=== PATIENT | female | born 1955 | race Two or more races ===

== ENCOUNTER 2024-04-02 17:49 | Inpatient (IN) | payer OTHER ==
[~2024-04-02] VITALS: Ht 160 cm; Wt 77.2 kg
--- NOTE | 2024-04-02 18:10 | ED.PDOC ---
Altered Mental Status HPI Comments 68-year-old female presents with a chief complaint of ALOC, anxiety, and SOB. Per EMS, patient is A/o x2 at this time, but is presenting very anxious. Per family, patient began acting this way starting today. Family denies any falls or head trauma prior to onset. Family discloses that patient has been undergoing treatment for Schizophrenia for the past 2 years. When asking patient what is wrong at this time, she states that she "feels like hell' and 'I cannot breathe". Patient was placed on nasal cannula by EMS. Chief Complaint: ALOC Time Seen by MD: 18:00 Reviewed Notes: Medications, Allergies Allergies: Coded Allergies: Penicillins (Verified Allergy, Unknown, 04/02/24) Information Source: Patient, Emergency Med Personnel Mode of Arrival: EMS Severity: Moderate Timing: Hours Duration: Since onset Prehospital treatment: Oxygen Quality: Change in Behavior, Confusion Past Medical History PAST MEDICAL HISTORY: High Lipids, HTN, Schizophrenia Surgical History: Pt Confused RECORDING ARTIST History: Denies all RECORDING ARTIST Hx Family History Family History: Reviewed,noncontributory to illness Social History Smoker: Non-Smoker Alcohol: Denies ETOH Use Drugs: Denies Drug Use Lives In: Home Constitutional: denies: chills, diaphoresis, fatigue, fever, malaise, sweats, weakness, others EENTM: denies: blurred vision, double vision, ear bleeding, ear discharge, ear drainage, ear pain, ear ringing, eye pain, eye redness, hearing loss, mouth pain, mouth swelling, nasal discharge, nose bleeding, nose congestion, nose pain, photophobia, tearing, throat pain, throat swelling, voice changes, others Respiratory: reports: shortness of breath; denies: cough, hemoptysis, orthopnea, SOB at rest, SOB with excertion, stridor, wheezing, others Cardiovascular: denies: chest pain, dizzy spells, diaphoresis, Dyspnea on exertion, edema, irregular heart beat, left arm pain, lightheadedness, palpitations, PND, syncope, others Gastrointestinal: denies: abdomen distended, abdominal pain, blood streaked bowels, constipated, diarrhea, dysphagia, difficulty swallowing, hematemesis, melena, nausea, poor appetite, poor fluid intake, rectal bleeding, rectal pain, vomiting, others Genitourinary: denies: abnormal vagina bleeding, burning, dyspareunia, dysuria, flank pain, frequency, hematuria, incontinence, pain, , vagina discharge, urgency, others Neurological: denies: dizziness, fainting, headache, left sided numbness, left sided weakness, numbness, paresthesia, pre-existing deficit, right sided numbnes s, right sided weakness, seizure, speech problems, tingling, tremors, weakness, others Musculoskeletal: denies: back pain, gout, joint pain, joint swelling, muscle pain, muscle stiffness, neck pain, others Integumetry: denies: bruises, change in color, change in hair/nails, dryness, laceration, lesions, lumps, rash, wounds, others Allergic/Immunocompromised: denies: Difficulty Healing, Frequent Infections, Hives, Itching, others Hematologic/Lymphatic: denies: anemia, blood clots, easy bleeding, easy bruising, swollen glands, others Endocrine: denies: excessive hunger, excessive sweating, excessive thirst, excessive urination, flushing, intolerance to cold, intolerance to heat, unexplained weight gain, unexplained weight loss, others Psychiatric: reports: anxiety; denies: bipolar disorder, depression, hopeless, panic disorder, schizophrenia, sleepless, suicidal, others Unable to Obtain due to: Altered Mental Status All Other Systems: Reviewed and Negative Physical Exam General Appearance: No Apparent Distress, Normal HEENT: Normal ENT Inspection, Pharynx Normal, TMs Normal Neck: Full Range of Motion, Non-Tender, Normal, Normal Inspection Respiratory: Chest Non-Tender, Lungs Clear, No Accessory Muscle Use, No Respiratory Distress, Normal Breath Sounds Cardiovascular: No Edema, No JVD, No Murmur, No Gallop, Normal Peripheral P ulses, Regular Rate/Rhythm Breast Exam: Deferred Gastrointestinal: No Organomegaly, Non Tender, No Pulsatile Mass, Normal Bowel Sounds, Soft Genitalia: Deferred Pelvic: Deferred Rectal: Deferred Extremities: No calf tenderness, Normal capillary refill, Normal inspection, Normal range of motion, Non-tender, No pedal edema Musculoskeletal : Apperance: Normal Neurologic: Alert, 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 Was a procedure done?: No Differential Diagnosis (ALOC) Differential Diagnosis: Hypoglycemia, DKA, Encephalopathy, Sepsis, Hypoxemia, CVA X-Ray, Labs, Meds, VS Vital Signs Date Time Temp Pulse Resp B/P (MAP) Pulse Ox O2 Delivery O2 Flow Rate FiO2 04/02/24 19:22 83 24 140/72 (94) 99 04/02/24 18:06 97.9 92 40 174/95 (121) 100 Lab Test 04/02/24 22:19 04/02/24 20:52 04/02/24 19:30 Range/Units Sodium Level 134 L 136-145 mmol/L Potassium Level 3.7 3.5-5.1 mmol/L Chloride Level 99 98-107 mmol/L Carbon Dioxide Level 22 20-31 mmol/L Anion Gap 13 5-15 Blood Urea Nitrogen 14 9-23 mg/dL Creatinine 1.29 H 0.550-1.02 mg/dL Glomerular Filtration Rate Calc 45 >90 mL/min BUN/Creatinine Ratio 10.9 10.0-20.0 Serum Glucose 94 74-106 mg/dL Calcium Level 10.5 H 8.7-10.4 mg/dL Troponin I High Sensitivity 10 9 </=34 ng/L White Blood Count 11.4 H 4.4-10.8 10^3/uL Red Blood Count 3.60 L 4.0-5.20 10^6/uL Hemoglobin 12.0 L 12.2-16.2 g/dL Hematocrit 34.4 L 36.0-46.0 % Mean Corpuscular Volume 95.6 80.0-100.0 fL Mean Corpuscular Hemoglobin 33.3 H 28.0-32.0 pg Mean Corpuscular Hemoglobin Concent 34.8 32.0-36.0 g/dL Red Cell Distribution Width 13.2 11.8-14.3 % Platelet Count 373 140-450 10^3/uL Mean Platelet Volume 6.9 6.9-10.8 fL Neutrophils (%) (Auto) 60.8 37.0-80.0 % Lymphocytes (%) (Auto) 32.5 10.0-50.0 % Monocytes (%) (Auto) 5.7 0.0-12.0 % Eosinophils (%) (Auto) 0.2 0.0-7.0 % Basophils (%) (Auto) 0.8 0.0-2.0 % Neutrophils # (Auto) 6.9 1.6-8.6 10 ^3/uL Lymphocytes # (Auto) 3.7 0.4-5.4 10 ^3/uL Monocytes # (Auto) 0.7 0-1.3 10 ^3/uL Eosinophils # (Auto) 0 0-0.8 10 ^3/uL Basophils # (Auto) 0.1 0-0.2 10 ^3/uL Nucleated Red Blood Cells 0.0 % Lactic Acid Level 1.6 0.4-2.0 mmol/L Lipase 61 H 12-53 U/L Current Medications Medications (Trade) Dose Ordered Sig/Sandeep Route Start Time Stop Time Status Last Admin Diphenhydramine HCl (Benadryl Injection) 25 mg ONCE ONCE IV 04/02/24 18:15 04/02/24 18:16 DC 04/02/24 19:58 Time of 1ST Reevaluation: 18:30 Reevaluation 1ST: Unchanged Patient Education/Counseling: Diagnosis, Treatment, Prognosis Family Education/Counseling: Diagnosis, Treatment, Prognosis Departure 1 Departure Time of Disposition: 23:08 (Patient with worsening ams. Will admit patient for further workup. ) Impression: Primary Impression: Metabolic encephalopathy Additional Impression: Weakness Disposition: 09 ADMITTED INPATIENT Admit to: Med Surg Condition: Serious Critical Care Note Critical Care Time?: No Stability Stability form required: No I personally scribed for AVINASH MEJIA MD ([email or web address]) on 04/02/24 at 18:10. Electronically submitted by Jareth Haddad ([email or web address]). AVINASH MEJIA MD Apr 02, 2024 18:10
--- NOTE | 2024-04-02 19:25 | DVH ---
CHEST RADIOGRAPH Indication: ams Technique: Single frontal view of the chest was obtained Comparison: None FINDINGS: Lines and Tubes: None Lungs: Clear Pleura: No effusion. No pneumothorax. Cardiomediastinal contours: Unremarkable Bones: Unremarkable IMPRESSION: 1. Clear lungs.
--- NOTE | 2024-04-02 19:26 | DVH ---
EXAM: CT HEAD WITHOUT CONTRAST INDICATION: ams TECHNIQUE: CT of the head without intravenous contrast. Radiation Dose Information: CT Dose: CTDI volume is 54.28 mGy. Dose-length product is 1178.25 mGy*cm The dose indicators for CT are the volume Computed Tomography (CT) Dose Index (CTDIvol) and the Dose Length Product (DLP), and are measured in units of mGy and mGy-cm, respectively. These indicators are not patient dose, but values generated from the CT scanner acquisition factors. The report includes radiation exposure data for exposures received during this examination. COMPARISON: None FINDINGS: There is no evidence of acute intracranial hemorrhage, extra-axial collection, mass effect, midline s hift, herniation or hydrocephalus. The ventricles, sulci and cisterns are age appropriate. The manuel-white differentiation is intact. Patchy periventricular and subcortical white matter hypoattenuation is nonspecific but may be related to small vessel ischemic disease. The visualized paranasal sinuses and mastoid air cells are clear. The surrounding soft tissues and osseous structures are unremarkable. IMPRESSION: 1. No acute intracranial hemorrhage. 2. No CT findings of territorial ischemia.
[2024-04-02] MEDS: diphenhdrAMINE HCL 50 MG/1 ML VL IV ONE (19:58)
[2024-04-02 20:01] LABS: Basophils # (auto) 0.1 10 ^3/uL (0-0.2); Basophils % (auto) 0.8 % (0.0-2.0); Eosinophils # (auto) 0 10 ^3/uL (0-0.8); Eosinophils % (auto) 0.2 % (0.0-7.0); Hematocrit 34.4 % (36.0-46.0); Lymphocytes # (auto) 3.7 10 ^3/uL (0.4-5.4); Lymphocytes % (auto) 32.5 % (10.0-50.0); Mean Corpuscular Hemoglobin 33.3 pg (28.0-32.0); Mean Corpuscular Hgb Conc. 34.8 g/dL (32.0-36.0); Mean Corpuscular Volume 95.6 fL (80.0-100.0); Monocytes # (auto) 0.7 10 ^3/uL (0-1.3); Monocytes % (auto) 5.7 % (0.0-12.0); Neutrophils # (auto) 6.9 10 ^3/uL (1.6-8.6); Neutrophils % (auto) 60.8 % (37.0-80.0); Platelet Count (auto) 373 10^3/uL (140-450); Red Cell Distribution Width 13.2 % (11.8-14.3); White Blood Cell 11.4 10^3/uL (4.4-10.8)
[2024-04-02 22:38] LABS: Chloride 99 mmol/L (98-107); Potassium 3.7 mmol/L (3.5-5.1)
[2024-04-02 22:39] LABS: Anion Gap 13 (5-15); Carbon Dioxide 22 mmol/L (20-31)
[2024-04-02 22:44] LABS: BUN/Creatinine Ratio 10.9 (10.0-20.0); Blood Urea Nitrogen 14 mg/dL (9-23); Glucose 94 mg/dL (74-106)
[2024-04-02 22:49] LABS: Calcium 10.5 mg/dL (8.7-10.4); Sodium 134 mmol/L (136-145)
[2024-04-02] MEDS ORDERED: DOCUSATE SOD 100 MG CAP PO PRN (23:15)
[2024-04-02] MEDS ORDERED: HYDROcodone-ACET 5/325MG TAB PO PRN (23:15)
[2024-04-02] MEDS ORDERED: NITROGLYCERIN 0.4 MG SL TAB SL PRN (23:15)
[2024-04-02] MEDS ORDERED: MORPHINE SULFATE INJ 2 MG/ml SYRG IV PRN (23:15)
[2024-04-02] MEDS ORDERED: ONDANSETRON HCL 4 MG/2 ML VIAL IV PRN (23:15)
[2024-04-02] MEDS ORDERED: hydrALAZINE HCL 20 MG/ML VL IV PRN (23:15)
[2024-04-02] MEDS ORDERED: ACETAMINOPHEN 325 MG TAB PO PRN (23:15)
--- NOTE | 2024-04-02 23:35 | DVHHP2 ---
History of Present Illness Reason for Visit: Altered mental status History of Present Illness The patient is a 68 years old female with past medical history of hypertension, hyperlipidemia, and schizophrenia who presented to [facility] ED for evaluation of altered level of consciousness. As reported by EMS, patient's symptoms progressively get worse with anxiety, weakness, shortness of breath, states "I feel like hell and I can not breathe". Patient was seen and evaluated in the ED, laboratory data shows WBC 11.4, platelets 373, sodium 134, potassium 3.7, BUN 14, creatinine 1.29, glucose 94, troponin 10, lipase 61, blood pressure 140/72, rate 83, temperature 97.9 F, O2 saturation 99% room air. Head CT showed acute intracranial hemorrhage. Please see medication orders section in the computer. On my assessment, patient remains altered, no diaphoresis, no abdominal pain, no diarrhea, no nausea, no vomiting, no fever, no chills. Patient was admitted for further evaluation and medical management. Past Medical History High Lipids, HTN, Schizophrenia Past Surgical History Unobtainable Family History Reviewed, noncontributory to the management of this case. Past Social History The patient lives at home, denies smoking, alcohol or illicit drugs abuse. Review of Systems Constitutional: Yes: Weakness; No: Fever, Chills, Sweats, Malaise, Other Eyes: No: Pain, Vision change, Conjunctivae inflammation, Eyelid inflammation, Other, Redness ENT: No: Ear pain, Ear discharge, Nose pain, Nose discharge, Nose congestion, Mouth pain, Mouth swelling, Throat pain, Throat swelling, Other Respiratory: Shortness of breath; No: Cough, Dry, SOB with excertion, Wheezing, Hemoptysis, Pleuritic Pain, Sputum, Wheezing, Other Cardiovascular: No: Chest Pain, Palpitations, Orthopnea, Paroxysmal Noc. Dyspnea, Edema, Lt Headedness, Other Gastrointestinal: No: Nausea, Vomiting, Abdominal Pain, Diarrhea, Constipation, Melena, Hematochezia, Other Genitourinary: No Dysuria, No Frequency, No Incontinence, No Hematuria, No Retention, No Other Musculoskeletal: No: other, neck pain, shoulder pain, arm pain, back pain, hand pain, leg pain, foot pain Skin: No: Rash, Lesions, Jaundice, Bruising, Other Neurological: Other (Altered level of consciousness); No: Weakness, Numbness, Incoordination, Change in speech, Confusion, Seizures Allergies: Coded Allergies: Penicillins (Verified Allergy, Unknown, 04/02/24) Exam Vital Signs Vital Signs Date Time Temp Pulse Resp B/P (MAP) Pulse Ox O2 Delivery O2 Flow Rate FiO2 04/02/24 19:22 83 24 140/72 (94) 99 04/02/24 18:06 97.9 General Appearance: Alert, Cooperative, No acute distress, Other (Oriented x2) HEENT: Atraumatic, PERRLA, EOMI, Mucous membr. moist/pink Respiratory: Clear to auscultation, Normal air movement Cardiovascular: Regular rate, Normal S1, Normal S2, No murmurs Abdominal: Normal bowel sounds, Soft, No tenderness, No hepatospenomegaly, No masses Extremities: No clubbing, No cyanosis, No edema, Normal pulses, No tenderness/swelling Skin: No rashes, No breakdown, No significant lesion Neuro: Normal speech, Normal tone, Sensation intact, Cranial nerves 3-12 NL, Reflexes 2+, Other (Generalized weakness) Psych/Mental Status: Mood NL, Other (Altered mental status) Labs/Xrays Labs Test 04/02/24 22:19 04/02/24 20:52 04/02/24 19:30 Range/Units Sodium Level 134 L 136-145 mmol/L Potassium Level 3.7 3.5-5.1 mmol/L Chloride Level 99 98-107 mmol/L Carbon Dioxide Level 22 20-31 mmol/L Anion Gap 13 5-15 Blood Urea Nitrogen 14 9-23 mg/dL Creatinine 1.29 H 0.550-1.02 mg/dL Glomerular Filtration Rate Calc 45 >90 mL/min BUN/Creatinine Ratio 10.9 10.0-20.0 Serum Glucose 94 74-106 mg/dL Calcium Level 10.5 H 8.7-10.4 mg/dL Troponin I High Sensitivity 10 </=34 ng/L White Blood Count 11.4 H 4.4-10.8 10^3/uL Red Blood Count 3.60 L 4.0-5.20 10^6/uL Hemoglobin 12.0 L 12.2-16.2 g/dL Hematocrit 34.4 L 36.0-46.0 % Mean Corpuscular Volume 95.6 80.0-100.0 fL Mean Corpuscular Hemoglobin 33.3 H 28.0-32.0 pg Mean Corpuscular Hemoglobin Concent 34.8 32.0-36.0 g/dL Red Cell Distribution Width 13.2 11.8-14.3 % Platelet Count 373 140-450 10^3/uL Mean Platelet Volume 6.9 6.9-10.8 fL Neutrophils (%) (Auto) 60.8 37.0-80.0 % Lymphocytes (%) (Auto) 32.5 10.0-50.0 % Monocytes (%) (Auto) 5.7 0.0-12.0 % Eosinophils (%) (Auto) 0.2 0.0-7.0 % Basophils (%) (Auto) 0.8 0.0-2.0 % Neutrophils # (Auto) 6.9 1.6-8.6 10 ^3/uL Lymphocytes # (Auto) 3.7 0.4-5.4 10 ^3/uL Monocytes # (Auto) 0.7 0-1.3 10 ^3/uL Eosinophils # (Auto) 0 0-0.8 10 ^3/uL Basophils # (Auto) 0.1 0-0.2 10 ^3/uL Nucleated Red Blood Cells 0.0 % Lactic Acid Level 1.6 0.4-2.0 mmol/L Lipase 61 H 12-53 U/L PATIENT: SANDIE DAVIES ACCT: [id number] UNIT: [id number] : 1955 LOC: ER ROOM / BED: / AGE / SEX: 68 / F ADM STATUS: REG ER SERVICE [id number] ORDERING PHYSICIAN: AVINASH MEJIA MD PROCEDURE(s): HWOCT - HEAD WITHOUT CONTRAST REASON: [facility] ORDER NUMBER(s): [id number], ACCESSION NUMBER(s): [id number] EXAM: CT HEAD WITHOUT CONTRAST INDICATION: ams TECHNIQUE: CT of the head without intravenous contrast. Radiation Dose Information: CT Dose: CTDI volume is 54.28 mGy. Dose-length product is 1178.25 mGy*cm The dose indicators for CT are the volume Computed Tomography (CT) Dose Index (CTDIvol) and the Dose Length Product (DLP), and are measured in units of mGy and mGy-cm, respectively. These indicators are not patient dose, but values generated from the CT scanner acquisition factors. The report includes radiation exposure data for exposures received during this examination. COMPARISON: None FINDINGS: There is no evidence of acute intracranial hemorrhage, extra-axial collection, mass effect, midline shift, herniation or hydrocephalus. The ventricles, sulci and cisterns are age appropriate. The manuel-white differentiation is intact. Patchy periventricular and subcortical white matter hypoattenuation is nonspecific but may be related to small vessel ischemic disease. The visualized paranasal sinuses and mastoid air cells are clear. The surrounding soft tissues and osseous structures are unremarkable. IMPRESSION: 1. No acute intracranial hemorrhage. 2. No CT findings of territorial ischemia. ORDERING PHYSICIAN: AVINASH MEJIA MD PROCEDURE(s): CXRP - CHEST PORTABLE REASON: ams ORDER NUMBER(s): [id number], ACCESSION NUMBER(s): [id number] CHEST RADIOGRAPH Indication: ams Technique: Single frontal view of the chest was obtained Comparison: None FINDINGS: Lines and Tubes: None Lungs: Clear Pleura: No effusion. No pneumothorax. Cardiomediastinal contours: Unremarkable Bones: Unremarkable IMPRESSION: 1. Clear lungs. Assessment/Plan Assessment/Plan Altered mental status Generalized weakness Hyponatremia Elevated lipase Leukocytosis, unspecified Plan 1. Admit to telemetry unit 2. Breathing treatment 3. Pain control management 4. Management of fluids and electrolytes 5. Consultation for hospitalist 6. Diagnostic tests head CT 7. DVT prophylaxis-on SCDs 8. Repeat labs CBC, CMP in a.m. 9. Continue with current medical management 10. Treatment plan discussed with patient and RN. Patient verbalized understanding. Plan discussed with: Patient, Other (RN) Problem List: (1) Altered mental status (2) Generalized weakness (3) Hyponatremia (4) Elevated lipase (5) Leukocytosis, unspecified Date of Service: Apr 02, 2024 Billing Provider: CARRIE ROGERS DNP Common Visit Codes: [id number] INP/OBS CARE (HIGH) CARRIE ROGERS DNP Apr 02, 2024 23:35
[2024-04-03] MEDS: LORazepam 2MG/ML-1ML VIAL IV PRN
[2024-04-03] MEDS: SODIUM CHLORIDE 0.9% 1,000 ML IV SCH (00:07)
[2024-04-03 08:11] VITALS: PULSE 80; RESP 22; O2SAT 98
[2024-04-03] MEDS ORDERED: CETI10TA2 PO (12:58)
[2024-04-03] MEDS ORDERED: ATOR10TA52 PO (12:58)
[2024-04-03] MEDS ORDERED: LAMO100T44 PO (12:58)
[2024-04-03] MEDS ORDERED: BUSP15TA90 PO (12:58)
[2024-04-03] MEDS ORDERED: DEUT24TA PO (12:58)
[2024-04-03] MEDS ORDERED: CYCL-837 PO (12:58)
[2024-04-03] MEDS ORDERED: BACL20TA PO (12:58)
[2024-04-03] MEDS ORDERED: ESCI1TAB36 PO (12:58)
[2024-04-03] MEDS ORDERED: APOA10CA PO (12:58)
[2024-04-03] MEDS ORDERED: ARIP2TAB PO (12:58)
[2024-04-03] MEDS ORDERED: VALS320T PO (12:58)
[2024-04-03 14:00] VITALS: BP 193/63; PULSE 111; RESP 16; TEMP 98.1; O2SAT 98
--- NOTE | 2024-04-03 14:47 | DVHPN2 ---
Subjective Admitted for ALOC Changes from previous H/P or p: Changes Eyes: No Pain, No Vision change, No Conjunctivae inflammation, No Eyelid inflammation, No Other, No Redness ENT: No Ear pain, No Ear discharge, No Nose pain, No Nose discharge, No Nose congestion, No Mouth pain, No Mouth swelling, No Throat pain, No Throat swelling, No Other Cardiovascular: No Chest Pain, No Palpitations, No Orthopnea, No Paroxysmal Noc. Dyspnea, No Edema, No Lt Headedness, No Other Respiratory: No Cough, No Dry; Shortness of breath; No SOB with excertion, No Wheezing, No Hemoptysis, No Pleuritic Pain, No Sputum, No Other Gastrointestinal: No Nausea, No Vomiting, No Abdominal Pain, No Diarrhea, No Constipation, No Melena, No Hematochezia, No Other Genitourinary: No Dysuria, No Frequency, No Incontinence, No Hematuria, No Retention, No Other Musculoskeletal: No other, No neck pain, No shoulder pain, No arm pain, No back pain, No hand pain, No leg pain, No foot pain Skin: No Rash, No Lesions, No Jaundice, No Bruising, No Other Objective Vitals Vital Signs Date Time Temp Pulse Resp B/P (MAP) Pulse Ox O2 Delivery O2 Flow Rate FiO2 04/03/24 08:11 80 22 98 Room Air* 0 21 04/03/24 08:10 97.9 138/82 (100) 97.9 General Appearance: Alert, Oriented X3, Cooperative, No acute distress Lungs: Clear to auscultation, Normal air movement Cardiovascular: Regular rate, Normal S1, Normal S2 Abdomen: Normal bowel sounds, Soft, No tenderness Extremities: No edema Medications Current Medications Medications Dose Ordered Sig/Sandeep Route Start Time Stop Time Status Last Admin Dose Admin Hydralazine HCl 10 mg Q6HP PRN IV 04/02/24 23:15 Atorvastatin Calcium 10 mg HS PO 04/03/24 22:00 Sodium Chloride 1,000 ml @ 60 mls/hr [id number] IV 04/02/24 23:15 04/03/24 00:07 60 MLS/HR Acetaminophen/ Hydrocodone Bitart 1 tab Q4HP PRN PO 04/02/24 23:15 Ondansetron HCl 4 mg Q4HP PRN IV 04/02/24 23:15 Docusate Sodium 100 mg BIDPRN PRN PO 04/02/24 23:15 Acetaminophen 650 mg Q6HP PRN PO 04/02/24 23:15 Nitroglycerin 0.4 mg Q5MINP PRN SL 04/02/24 23:15 Morphine Sulfate 2 mg Q30M PRN IV 04/02/24 23:15 Lorazepam 1 mg Q8HP PRN IV 04/02/24 23:45 04/03/24 00:00 1 MG Laboratory Results Laboratory Tests 04/02/24 19:30 04/02/24 22:19 Chemistry Test 04/02/24 22:19 Calcium Level 10.5 mg/dL (8.7-10.4) H Lipid panel Test 04/02/24 19:30 Lipase 61 U/L (12-53) H Assessment/Plan Assessment/Plan Altered level of consciousness Schizophrenia HTN Dyslipidemia PLAN: Check UA and urine culture Drug screen Resume home meds Full code Plan discussed with: Patient, Spouse My Orders Orders - WINNIE PANTOJA MD Procedure Category Date Status Time Urinalysis LAB 04/03/24 Logged 09:12 Urine Bacterial BRUNO 04/03/24 Logged Culture 09:12 Drug Screen LAB 04/03/24 Logged 09:12 Date of Service: Apr 03, 2024 Billing Provider: WINNIE PANTOJA MD Common Visit Codes: NOT BILLABLE WINNIE PANTOJA MD Apr 03, 2024 14:47
[2024-04-03 16:24] LABS: Urine Bacteria None Seen /hpf (None Seen)
[2024-04-03 16:57] LABS: Urine Blood 2+ /uL (Negative); Urine Clarity Clear (Clear); Urine Color Light-Yellow (Yellow); Urine Protein, UAD 1+ (Negative); Urine Specific Gravity 1.012 (1.001-1.035); Urine Urobilinogen Normal (Negative); Urine WBC 5 /hpf (0 - 5)
[2024-04-03 17:04] LABS: Amphetamine Screen, Urine Neg (NEGATIVE); Barbiturate Scree,Urine Neg (NEGATIVE); Benzodiazephine Screen, Urine Neg (NEGATIVE); Cocaine Screen, Urine Neg (NEGATIVE)
[2024-04-03 17:05] LABS: Cannabinoid Screen, Urine Neg (NEGATIVE); Opiate Scree,Urine Neg (NEGATIVE); Phencyclidine Screen, Urine Neg (NEGATIVE)
[2024-04-03] MEDS ORDERED: lamoTRIgine 100 MG TAB PO SCH (22:00)
[2024-04-03] MEDS ORDERED: ATORVASTATIN 20 MG TAB PO SCH (22:00)
[2024-04-04] MEDS ORDERED: VALSARTAN 80 MG TAB PO SCH (10:00)
[2024-04-04] MEDS ORDERED: CITALOPRAM HYDROBR 20 MG TAB PO SCH (10:00)
== END 2024-04-03 17:12 | disposition left against medical advice (07) | DRG 101 ==
LOC: EDBD 17:49 → ER 17:49 → TELE 23:20
PROVIDERS: ADMIT Nurse Practitioner Family; ATTEND Internal Medicine Geriatric Medicine
DX: G40.909 Epilepsy, unspecified, not intractable, without status epilepticus (principal); E87.1 Hypo-osmolality and hyponatremia; I62.9 Nontraumatic intracranial hemorrhage, unspecified; R74.8 Abnormal levels of other serum enzymes; D72.829 Elevated white blood cell count, unspecified; F41.9 Anxiety disorder, unspecified; F20.9 Schizophrenia, unspecified; I10 Essential (primary) hypertension; Z53.29 Procedure and treatment not carried out because of patient's decision for other reasons; E78.5 Hyperlipidemia, unspecified; Z88.0 Allergy status to penicillin
CPT/HCPCS: 36415; 70450; 71045; 80048; 80307; 81001; 83605; 83690; 84484; 85025; 87086; 96374; 96375; G0378

== ENCOUNTER 2024-07-12 01:14 | Inpatient (IN) | payer OTHER, MEDICAID ==
[~2024-07-12] VITALS: Ht 152.4 cm; Wt 71.2 kg
[~2024-07-12 01:14] MED LIST: APOA10CA PO; ARIP2TAB PO; ATOR10TA52 PO; BACL20TA PO; BUSP15TA90 PO; CETI10TA2 PO; CYCL-837 PO; DEUT24TA PO; ESCI1TAB36 PO; LAMO100T44 PO; VALS320T PO
[2024-07-12] MEDS: SODIUM CHLORIDE 0.9% 1,000 ML IV ONE ×2 (02:15→06:11)
[2024-07-12 02:23] LABS: Basophils # (auto) 0 10 ^3/uL (0-0.2); Basophils % (auto) 0.2 % (0.0-2.0); Eosinophils # (auto) 0 10 ^3/uL (0-0.8); Eosinophils % (auto) 0.1 % (0.0-7.0); Hematocrit 34.6 % (36.0-46.0); Hemoglobin 12.6 g/dL (12.2-16.2); Lymphocytes # (auto) 2.2 10 ^3/uL (0.4-5.4); Lymphocytes % (auto) 21.3 % (10.0-50.0); Mean Corpuscular Hgb Conc. 36.3 g/dL (32.0-36.0); Mean Corpuscular Volume 93.7 fL (80.0-100.0); Monocytes # (auto) 0.3 10 ^3/uL (0-1.3); Monocytes % (auto) 2.8 % (0.0-12.0); Neutrophils # (auto) 7.9 10 ^3/uL (1.6-8.6); Neutrophils % (auto) 75.6 % (37.0-80.0); Platelet Count (auto) 375 10^3/uL (140-450); Red Blood Cells 3.69 10^6/uL (4.0-5.20); Red Cell Distribution Width 12.5 % (11.8-14.3); White Blood Cell 10.4 10^3/uL (4.4-10.8)
[2024-07-12] MEDS: IOHEXOL 300 MG/ML 100ML BOTTLE IJ ONE (02:29)
--- NOTE | 2024-07-12 02:35 | ED.PDOC ---
History of Present Illness HPI Comments 69-year-old, obese female, with a history of HLD, HTN, and schizophrenia, is [id number] ambulance for c/o non-radiating, epigastric abdominal pain and shortness of breath, today. Patient is a poor historian and endorses on unprovoked and sudden onset of symptoms, this morning. She describes pain as "burning" in quality and having similar episode of symptoms multiple times in the past, with last episode onset with accompanying ED visit at [facility] 1 week ago. She reports no further relevant information, such as recent spoiled food intake, sick contact, strenuous activities, or significant GI history, at time of initial assessment aside from some unspecifi ed "steroid" use for her pain that she has used in the past. Patient denies any nausea, vomiting, diarrhea, constipation, urinary symptoms, fever, or chills. Chief Complaint: Abdominal Pain Time Seen by MD: 02:00 Primary Care Provider: UNKNOWN Reviewed Notes: Nurses Notes, Medical Coding Technician Notes, Medications, Allergies Allergies: Coded Allergies: Penicillins (Verified Allergy, Unknown, 04/02/24) Home Meds Reported Medications Baclofen (Baclofen) 20 Mg Tab, 10 MG PO TID, TAB 04/03/24 Cetirizine Hcl (Kls Aller-Raven) 10 Mg Tab, 1 TAB PO DAILY, #30 TAB 3 Refills 04/03/24 Escitalopram Oxalate (ESCITALOPRAM OXALATE) 10 Mg Tab, 1 TAB PO DAILY, #30 TAB 3 Refills 04/03/24 Buspirone HCl (Buspirone Hydrochloride) 15 Mg Tab, 15 MG PO BID, TAB 04/03/24 Cyclobenzaprine Hcl (Cyclobenzaprine Hcl) 5 Mg Tab, 2 TAB PO QPM, #30 TAB 04/03/24 Valsartan (Diovan) 320 Mg Tab, 1 TAB PO DAILY, #90 TAB 1 Refill 04/03/24 Lamotrigine (Lamotrigine) 100 Mg Tab, 1 TAB PO BID, #60 TAB 04/03/24 Lamotrigine (Lamotrigine) 100 Mg Tab, 1 TAB PO BID, #60 TAB 04/03/24 Atorvastatin Calcium (ATORVASTATIN CALCIUM) 10 Mg Tab, 1 TAB PO DAILY, #30 TAB 5 Refills 04/03/24 Aripiprazole (Abilify) 2 Mg Tab, 1 TAB PO DAILY, #30 TAB 2 Refills 04/03/24 Deutetrabenazine (Austedo Xr) 24 Mg Tab, 42 MG PO DAILY, TAB 04/03/24 Apoaequorin (PREVAGEN) 10 Mg Cap, 50 MCG PO DAILY, CAP 04/03/24 Information Source: Patient, Emergency Med Personnel Mode of Arrival: EMS Severity: Moderate Timing: Hours Duration: Since onset Prehospital treatment: 12 Lead 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, 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, 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 Past Medical History PAST MEDICAL HISTORY: High Lipids, HTN, Schizophrenia Surgical History: Denies all surgeries DIRECTOR OF CASEWORK DEPARTMENT History: Denies all DIRECTOR OF CASEWORK DEPARTMENT Hx Family History Family History: Reviewed,noncontributory to illness Social History Smoker: Non-Smoker Alcohol: Denies ETOH Use Drugs: Denies Drug Use Lives In: Home Respiratory: reports: shortness of breath Gastrointestinal: reports: abdominal pain All Other Systems: Reviewed and Negative (Comprehensive review of systems are negative unless otherwise stated above or in HPI) Physical Exam General Appearance: No Apparent Distress, Obese HEENT: Normal ENT Inspection, Pharynx Normal, TMs Normal Neck: Full Range of Motion, Non-Tender, Normal, Normal Inspection Respiratory: Chest Non-Tender, Lungs Clear, No Accessory Muscle Use, No Respiratory Distress, Normal Breath Sounds Cardiovascular: No Edema, No JVD, No Murmur, No Gallop, Normal Peripheral Pulses, Regular Rate/Rhythm Breast Exam: Deferred Gastrointestinal: No Organomegaly, Non Tender, No Pulsatile Mass, Normal Bowel Sounds, Soft Genitalia: Deferred Pelvic: Deferred Rectal: Deferred Extremities: No calf tenderness, Normal capillary refill, Normal inspection, Normal range of motion, Non-tender, No pedal edema Musculoskeletal : Apperance: Normal 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 Was a procedure done?: No EKG EKG : Pulse Rate (adult): 67 [place]: Normal Cardiac Rhythm: NSR Block: None Hypertrophy: None ST: Normal Differential Dx Considerations may include: gastritis, gastroenteritis, GERD, PUD, cholelithiasis, cholecystitis, viral syndrome, spoiled food, among others X-Ray, Labs, Meds, VS Vital Signs Date Time Temp Pulse Resp B/P (MAP) Pulse Ox O2 Delivery O2 Flow Rate FiO2 07/12/24 04:12 70 18 137/72 07/12/24 03:42 72 20 149/91 07/12/24 03:22 72 18 97 Room Air 07/12/24 03:22 97.5 72 22 149/91 (110) 97 97.5 07/12/24 02:35 67 07/12/24 01:40 67 07/12/24 01:14 97.5 69 17 152/77 (102) 98 97.5 Lab Test 07/12/24 03:35 07/12/24 01:54 Range/Units Urine Color Colorless Yellow Urine Clarity Clear Clear Urine pH 7.0 5.0-9.0 Urine Specific [place] 1.012 1.001-1.035 Urine Protein Negative Negative Urine Ketones Negative Negative Urine Blood Trace H Negative /uL Urine Nitrite Negative Negative Urine Bilirubin Negative Negative Urine Urobilinogen Normal Negative mg/dL Urine Leukocyte Esterase Negative Negative /uL Urine RBC 3 0 - 4 /hpf Urine Microscopic WBC 4 0-5 /HPF Urine Squamous Epithelial Cells Few <5 /hpf Urine Bacteria None seen None Seen /hpf Urine Glucose Normal Normal mg/dL White Blood Count 10.4 4.4-10.8 10^3/uL Red Blood Count 3.69 L 4.0-5.20 10^6/uL Hemoglobin 12.6 12.2-16.2 g/dL Hematocrit 34.6 L 36.0-46.0 % Mean Corpuscular Volume 93.7 80.0-100.0 fL Mean Corpuscular Hemoglobin 34.0 H 28.0-32.0 pg Mean Corpuscular Hemoglobin Concent 36.3 H 32.0-36.0 g/dL Red Cell Distribution Width 12.5 11.8-14.3 % Platelet Count 375 140-450 10^3/uL Mean Platelet Volume 6.7 L 6.9-10.8 fL Neutrophils (%) (Auto) 75.6 37.0-80.0 % Lymphocytes (%) (Auto) 21.3 10.0-50.0 % Monocytes (%) (Auto) 2.8 0.0-12.0 % Eosinophils (%) (Auto) 0.1 0.0-7.0 % Basophils (%) (Auto) 0.2 0.0-2.0 % Neutrophils # (Auto) 7.9 1.6-8.6 10 ^3/uL Lymphocytes # (Auto) 2.2 0.4-5.4 10 ^3/uL Monocytes # (Auto) 0.3 0-1.3 10 ^3/uL Eosinophils # (Auto) 0 0-0.8 10 ^3/uL Basophils # (Auto) 0 0-0.2 10 ^3/uL Nucleated Red Blood Cells 0.0 % Sodium Level 123 L 136-145 mmol/L Potassium Level 4.3 3.5-5.1 mmol/L Chloride Level 93 L 98-107 mmol/L Carbon Dioxide Level 22 20-31 mmol/L Anion Gap 8 5-15 Blood Urea Nitrogen 22 9-23 mg/dL Creatinine 1.25 H 0.550-1.02 mg/dL Glomerular Filtration Rate Calc 47 >90 mL/min BUN/Creatinine Ratio 17.6 10.0-20.0 Serum Glucose 103 74-106 mg/dL Calcium Level 10.6 H 8.7-10.4 mg/dL Troponin I High Sensitivity 6 </=34 ng/L Current Medications Medications (Trade) Dose Ordered Sig/Sandeep Route Start Time Stop Time Status Last Admin Sodium Chloride 1,000 ml @ 1,000 mls/hr Q1H ONCE IV 07/12/24 02:15 07/12/24 03:14 DC 07/12/24 02:15 Ondansetron HCl (Zofran) 4 mg ONCE ONCE IV 07/12/24 02:15 07/12/24 02:16 DC 07/12/24 03:43 Morphine Sulfate 4 mg ONCE ONCE IV 07/12/24 02:15 07/12/24 02:16 DC 07/12/24 03:42 Pantoprazole Sodium (Protonix) 80 mg ONCE ONCE IV 07/12/24 02:15 07/12/24 02:16 DC 07/12/24 03:42 Time of 1ST Reevaluation: 02:30 Reevaluation 1ST: Unchanged Patient Education/Counseling: Diagnosis, Treatment Family Education/Counseling: No Family Present Additional Information Previous visit documents reviewed: April 02, 2024 encounter for AMS The following tests were ordered, and results were reviewed by me: CT abdomen/pelvis w/IV contrast, troponin, UA, CBC, BMP, EKG Additional Information was gathered from interviewing the following independent historians: EMS I reviewed and agreed with the following test results read by other providers: CT abdomen/pelvis w/IV contrast I discussed treatment and results with medical personnel and: Patient Departure 1 Departure Time of Disposition: 05:15 (Patient presented with abdominal pain that was concerning for possible appendicits, gastritis, cholecystitis, colitis, gastroenteritis, sbo, or orther possible surgical emergency. Data: 1. I ordered and reviewed the result of at least 3 labs including a CBC, BMP, and Urinalysis. 2. I independently interpreted the following tests: CT Abdoment and Pelvis is concerning for benign abdomen .Risk:This patient has a high risk of morbidity due to further diagnostic testing or treatment and may suffer from an acute abdominal process disorder. Workup reveals intractable epigastric pain and concern for gastritis and patient should be admitted for further workup. and possible expert consultation. ) Impression: Primary Impression: Intractable abdominal pain Disposition: ADMITTED INPATIENT Admit to: Med Surg Condition: Serious Critical Care Note Critical Care Time?: Yes Critical care comment: Intractable abdominal pain Authorized and Performed by: Avinash Longo MD Total critical care time: Approximately 37 minutes Due to a high probability of clinically significant, life threatening deterioration, the patient required my highest level of preparedness to intervene emergently and I personally spent this critical care time directly and personally managing the patient. This critical care time included obtaining a history; examining the patient; pulse oximetry; ordering and review of studies; arranging urgent treatment with development of a management plan; evaluation of patient's response to treatment; frequent reassessment; and, discussions with other providers. This critical care time was performed to assess and manage the high probability of imminent, life-threatening deterioration that could result in multi-organ failure. It was exclusive of separately billable procedures and treating other patients and teaching time. Please see my other sections and the rest of the note for further information on patient assessment and treatment. Stability Stability form required: No Heart Score Heart Score: Heart Score Response (Comments) Value History N/A 0 EKG N/A 0 Age N/A 0 Risk Factors N/A 0 Troponin N/A 0 Total 0 I personally scribed for AVINASH LONGO MD ([email or web address]) on 07/12/24 at 02:35. Electronically submitted by Tyree Rowe ([email or web address]). I personally scribed for AVINASH LONGO MD ([email or web address]) on 07/12/24 at 02:36. Electronically submitted by Tyree Rowe ([email or web address]). AVINASH LONGO MD Jul 12, 2024 02:35
[2024-07-12 02:43] LABS: Potassium 4.3 mmol/L (3.5-5.1)
[2024-07-12 02:44] LABS: Anion Gap 8 (5-15); Carbon Dioxide 22 mmol/L (20-31)
[2024-07-12 02:50] LABS: BUN/Creatinine Ratio 17.6 (10.0-20.0); Blood Urea Nitrogen 22 mg/dL (9-23); Glucose 103 mg/dL (74-106)
[2024-07-12 02:51] LABS: Calcium 10.6 mg/dL (8.7-10.4); Chloride 93 mmol/L (98-107); Sodium 123 mmol/L (136-145)
[2024-07-12] MEDS: MORPHINE SULFATE 4 MG/ML SYR/VIAL IV ONE (03:42)
[2024-07-12] MEDS: PANTOPRAZOLE 40 MG/10 ML VIAL INJ IV ONE (03:42)
[2024-07-12] MEDS: ONDANSETRON HCL 4 MG/2 ML VIAL IV ONE (03:43)
[2024-07-12 03:51] LABS: Urine Bacteria None Seen /hpf (None Seen)
[2024-07-12 04:16] LABS: Urine Blood TRACE /uL (Negative); Urine Clarity Clear (Clear); Urine Color Colorless (Yellow); Urine Protein, UAD Negative (Negative); Urine Specific Gravity 1.012 (1.001-1.035); Urine Squamous Epithelial Cell FEW /hpf (<5); Urine Urobilinogen Normal (Negative); Urine WBC 4 /HPF (0-5)
--- NOTE | 2024-07-12 05:04 | DVH ---
Exam: CT CT AB PEL WITH IV CON ONLY History: epigastic pain Comparison Study: None available at time of dictation. Technique: Multidetector spiral CT of the abdomen was performed from lung bases to pubic symphysis. A xial imaging was performed with intravenous contrast following the uneventful administration of 100 m l Omnipaque 300. Coronal and sagittal multiplanar reformats were obtained from the axial data set by the technologist. Radiation Dose : 1. Abdomen/Pelvis: CTDIvol 9.99 mGy, DLP 529.26 mGy*cm. Findings: Lung Bases: Lung bases are clear. Visualized portions of the heart and pericardium are unremarkable. Liver: The liver is normal in size. No focal lesions. Gallbladder and Biliary Tree: The gallbladder is unremarkable. No intrahepatic or extrahepatic biliar y ductal dilatation. Spleen: Unremarkable Pancreas: The pancreas enhances normally and there are no focal lesions. The main pancreatic duct is not dilated Adrenal Glands: Unremarkable Kidneys: The kidneys enhance symmetrically. There is fullness of the renal collecting systems withou t obstructive intrarenal or ureteral stone. Left renal cysts measure up to 2.6 in the lower pole of the left kidney. GI tract: Hiatal hernia. No evidence of small bowel wall thickening or abnormal dilatation to suggest bowel obstruction. Some of the small bowel loops are collapsed. The colon is unremarkable. The appen abigail is visualized and is normal. Peritoneum/mesentery/retroperitoneum. No evidence of free intraperitoneal air. No ascites. No evidenc e of suspicious lymphadenopathy. Abdominal Wall: Unremarkable. Vasculature: Abdominal aorta and main branches are unremarkable. There are atherosclerotic calcificat ions in the aorta. Normal vascular enhancement. Urinary Bladder: Mildly distended. Pelvic Organs: Unremarkable. Musculoskeletal: No aggressive focal bony lesions, acute fractures or dislocation. Degenerative graves es in the lower lumbar spine. IMPRESSION: 1. Mild fullness of the bilateral renal collecting systems without obstructive calculi. Findings may be related to slight distention of the urinary bladder. 2. Hiatal hernia.
[2024-07-12] MEDS ORDERED: LORazepam 2MG/ML-1ML VIAL IV PRN (06:00)
[2024-07-12] MEDS ORDERED: ONDANSETRON HCL 4 MG/2 ML VIAL IV PRN (06:00)
[2024-07-12] MEDS ORDERED: ACETAMINOPHEN 325 MG TAB PO PRN (06:00)
[2024-07-12] MEDS ORDERED: MORPHINE SULFATE INJ 2 MG/ml SYRG IV PRN (06:00)
--- NOTE | 2024-07-12 06:01 | ECG ---
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
--- NOTE | 2024-07-12 06:04 | DVHHPRES ---
History of Present Illness Resident Creating Document: LYNDSEY REYES RESIDENT History of Present Illness Sherly Chapin this is a 69-year-old female patient who presents to the ED with chief complaint of constant burning nonradiating epigastric abdominal pain which started approximately 2 days before her admission. Patient says this pain was triggered after eating, intensity 10/10, relieved with pantoprazole and morphine. Patient states to have a similar episode approximately one-week ago but that episode was associated with nausea and diarrhea as well, evaluated [place], we will try to obtain records. Denies any unintentional weight loss, fever, chills, palpitation, syncope, chest pain, dyspnea and any other associated symptoms. Of note, the epigastric pain started a month ago. She report to [facility] for care. for the next episode,she went to [facility]. We will obtain records. Past medical history: Hypertension, anxiety, dyslipidemia, schizophrenia, ex- polysubstance abuse (tobacco and alcohol), allergies, chronic back pain secondary to pinched nerve. Surgical history: Hysterectomy, Family history: colon cancer grandmother, lung cancer mother Social history: She currently works, almost retired. Lives at home. Ex tobacco abuse (approximately 20 pack year history smoking). X ethanol abuse (initially was drinking beer and then added whiskey, did not quantify how much she would drink per day). Has been clean for approximately 1 year. Denies current tobacco, alcohol and other drug abuse. Allergies: Penicillin Home medication: Lamotrigine, per wagon, aripiprazole, atorvastatin, baclofen, buspirone, cetirizine, cyclobenzaprine, [place], escitalopram, valsartan Patient is seen and examined at bedside. Currently has no epigastric pain after morphine and pantoprazole. She does have chronic back pain Past Medical History Per HPI Past Surgical History Per HPI Family History Per HPI Past Social History Per HPI Review of Systems Allergies: Coded Allergies: Penicillins (Verified Allergy, Unknown, 04/02/24) Medications Current Medications Medications Dose Ordered Sig/Sandeep Route Start Time Stop Time Status Last Admin Dose Admin Acetaminophen 650 mg Q6HP PRN PO 07/12/24 06:00 UNV Ondansetron HCl 4 mg Q4HP PRN IV 07/12/24 06:00 UNV Enoxaparin Sodium 40 mg DAILY SC 07/12/24 10:00 UNV Pantoprazole Sodium 40 mg BID IV 07/12/24 10:00 UNV Lamotrigine 100 mg BID PO 07/12/24 10:00 UNV Patient Own Medication 50 mcg DAILY PO 07/12/24 10:00 UNV Patient Own Medication 1 tab DAILY PO 07/12/24 10:00 UNV Patient Own Medication 1 tab DAILY PO 07/12/24 10:00 UNV Patient Own Medication 10 mg TID PO 07/12/24 06:00 UNV Exam Vital Signs Vital Signs Date Time Temp Pulse Resp B/P (MAP) Pulse Ox O2 Delivery O2 Flow Rate FiO2 07/12/24 04:12 70 18 137/72 07/12/24 03:22 97 Room Air 07/12/24 03:22 97.5 97.5 Exam General Appearance: Alert, Oriented X3, Cooperative, No acute distress. Seemed anxious, constantly rocking back and forth. HEENT: Atraumatic, PERRLA, EOMI, Mucous membrane moist/pink Respiratory: Clear to auscultation, Normal air movement Cardiovascular: Regular rate, Normal S1, Normal S2, No murmurs, no chest wall tenderness Abdominal: NO distention, mild right upper quadrant pain on superficial palpation, rest of abdomen nontender, bowel sounds present, no scars noted Extremities: No clubbing, No cyanosis, No edema, Normal pulses, No tenderness/swelling Skin: No rashes, No breakdown, No significant lesion Neuro: Normal gait, Normal speech, Strength at 5/5 X4 ext, Normal tone, Sensation intact, Cranial nerves 3-12 NL, Reflexes 2+ Psych/Mental Status: Mental status NL, Mood NL Labs/Xrays Labs Test 07/12/24 03:35 07/12/24 01:54 Range/Units Urine Color Colorless Yellow Urine Clarity Clear Clear Urine pH 7.0 5.0-9.0 Urine Specific [place] 1.012 1.001-1.035 Urine Protein Negative Negative Urine Ketones Negative Negative Urine Blood Trace H Negative /uL Urine Nitrite Negative Negative Urine Bilirubin Negative Negative Urine Urobilinogen Normal Negative mg/dL Urine Leukocyte Esterase Negative Negative /uL Urine RBC 3 0 - 4 /hpf Urine Microscopic WBC 4 0-5 /HPF Urine Squamous Epithelial Cells Few <5 /hpf Urine Bacteria None seen None Seen /hpf Urine Glucose Normal Normal mg/dL White Blood Count 10.4 4.4-10.8 10^3/uL Red Blood Count 3.69 L 4.0-5.20 10^6/uL Hemoglobin 12.6 12.2-16.2 g/dL Hematocrit 34.6 L 36.0-46.0 % Mean Corpuscular Volume 93.7 80.0-100.0 fL Mean Corpuscular Hemoglobin 34.0 H 28.0-32.0 pg Mean Corpuscular Hemoglobin Concent 36.3 H 32.0-36.0 g/dL Red Cell Distribution Width 12.5 11.8-14.3 % Platelet Count 375 140-450 10^3/uL Mean Platelet Volume 6.7 L 6.9-10.8 fL Neutrophils (%) (Auto) 75.6 37.0-80.0 % Lymphocytes (%) (Auto) 21.3 10.0-50.0 % Monocytes (%) (Auto) 2.8 0.0-12.0 % Eosinophils (%) (Auto) 0.1 0.0-7.0 % Basophils (%) (Auto) 0.2 0.0-2.0 % Neutrophils # (Auto) 7.9 1.6-8.6 10 ^3/uL Lymphocytes # (Auto) 2.2 0.4-5.4 10 ^3/uL Monocytes # (Auto) 0.3 0-1.3 10 ^3/uL Eosinophils # (Auto) 0 0-0.8 10 ^3/uL Basophils # (Auto) 0 0-0.2 10 ^3/uL Nucleated Red Blood Cells 0.0 % Sodium Level 123 L 136-145 mmol/L Potassium Level 4.3 3.5-5.1 mmol/L Chloride Level 93 L 98-107 mmol/L Carbon Dioxide Level 22 20-31 mmol/L Anion Gap 8 5-15 Blood Urea Nitrogen 22 9-23 mg/dL Creatinine 1.25 H 0.550-1.02 mg/dL Glomerular Filtration Rate Calc 47 >90 mL/min BUN/Creatinine Ratio 17.6 10.0-20.0 Serum Glucose 103 74-106 mg/dL Calcium Level 10.6 H 8.7-10.4 mg/dL Troponin I High Sensitivity 6 </=34 ng/L Assessment/Plan Assessment/Plan Assessment: Probable Gastritis Bilateral Hydronephrosis Hypertension Dyslipidemia Anxiety Schizophrenia Chronic back pain History of polysubstance abuse Plan: Continue with pantoprazole IV, patient is currently NPO. We will evaluate tolerance to diet with clear liquid diet in the a.m. Evaluate GI consult Consulted Urology for bilateral hydronephrosis. Ordered kidney ultrasound Pending urine analysis and UDS Optimize pain medication Diet: NPO Prophylaxis: On pantoprazole and DVT prophylaxis with enoxaparin Goal of care discussed with patient for over 18 minutes: Full code status Case discussed with Dr. Price Plan discussed with: Patient, Other (Nurses) My Orders Orders - LYNDSEY REYES RESIDENT Procedure Category Date Status Time Admit ADMIT 07/12/24 Transmitted 05:46 Code Status CODE 07/12/24 Transmitted 05:46 Vital Signs [facility] 07/12/24 Transmitted 05:46 Review Orders With COLIN 07/12/24 Transmitted Adm. 05:46 Npo (Nothing By DIET 07/12/24 Transmitted Mouth) Diet Breakfast Acetaminophen Tablet [facility] 07/12/24 Transmitted (Tylenol Tablet) 06:00 Notify Of Changes [facility] 07/12/24 Transmitted From Base 05:46 Advance Directive [facility] 07/12/24 Transmitted 05:46 Urinalysis LAB 07/12/24 Transmitted 05:46 Complete Blood Count LAB 07/12/24 Transmitted 05:46 Lipid Panel LAB 07/12/24 Transmitted 05:46 Patient Condition ORDERS 07/12/24 Transmitted 05:46 Allergies [facility] 07/12/24 Transmitted 05:46 Ondansetron Hcl [facility] 07/12/24 Transmitted (Zofran) 06:00 Drug Screen LAB 07/12/24 Transmitted 05:46 Hemoglobin A1c LAB 07/12/24 Transmitted 05:46 Lovenox 40mg [facility] 07/12/24 Transmitted 10:00 Notify Of Changes [facility] 07/12/24 Transmitted From Base 05:46 Pantoprazole [facility] 07/12/24 Transmitted (Protonix) 10:00 Lamotrigine Tablet [facility] 07/12/24 Transmitted (Lamictal Tablet) 10:00 (Nf) Apoaequorin [facility] 07/12/24 Transmitted (Prevagen) 10:00 (Nf) Aripiprazole [facility] 07/12/24 Transmitted (Abilify) 10:00 (Nf) Atorvastatin [facility] 07/12/24 Transmitted Calcium 10:00 (Nf) Baclofen PHA 07/12/24 Transmitted 06:00 (Nf) Buspirone Hcl [facility] 07/12/24 Transmitted (Buspirone Hydrochlor 10:00 (Nf) Cetirizine Hcl [facility] 07/12/24 Transmitted (Kls Aller-Raven) 10:00 (Nf) Cyclobenzaprine PHA 07/12/24 Transmitted Hcl 18:00 (Nf) Deutetrabenazine PHA 07/12/24 Transmitted (Austedo Xr) 10:00 (Nf) Escitalopram PH[facility] 07/12/24 Transmitted Oxalate 10:00 (Nf) Valsartan PHA 07/12/24 Transmitted (Diovan) 10:00 Lorazepam 2mg/Ml Inj [facility] 07/12/24 Transmitted (Ativan Inj) 06:00 Kidney US 07/12/24 Transmitted 05:46 NS PHA 07/12/24 Transmitted 06:00 Date of Service: Jul 12, 2024 Billing Provider: HERSON PRICE MD Common Visit Codes: 21165-[id number] INP/OBS CARE (HIGH) Secondary Visit Codes: 46615-[id number] CARE PLAN 30 MINUTES LYNDSEY REYES RESIDENT Jul 12, 2024 06:04 HERSON PRICE MD Jul 12, 2024 11:08
[2024-07-12] MEDS: BACLOFEN 10 MG TAB PO SCH (06:22)
--- NOTE | 2024-07-12 06:34 | DVH ---
INDICATION: Hydronephrosis TECHNIQUE: Multiple real-time sonographic images of the kidneys and bladder were obtained. COMPARISON: CT scan of the abdomen pelvis performed same date. FINDINGS: The right kidney measures 9.6 cm in length, which is normal in size. There is normal echoge nicity of the right kidney. No hydronephrosis. The left kidney measures 9.9 cm in length, which is normal in size. There is normal echogenicity of t he left kidney. No hydronephrosis. There are left renal cysts, the largest measuring 3.1 x 2.8 x 3.0 cm. No large intraluminal masses are seen in the bladder. Prior to voiding the bladder volume measures vo lume 499 cc. Following voiding, the bladder volume residual measures 309 cc. IMPRESSION: 1. No hydronephrosis. Left renal cysts.
[2024-07-12 07:17] LABS: Triglycerides 72 mg/dL (< 150)
[2024-07-12 07:18] LABS: LDL Cholesterol 90 mg/dL (< 100)
[2024-07-12 07:19] LABS: Cholesterol 186 mg/dL (< 200)
[2024-07-12 07:22] LABS: HDL Cholesterol 81 mg/dL (40-59)
[2024-07-12 08:02] LABS: Basophils # (auto) 0 10 ^3/uL (0-0.2); Basophils % (auto) 0.2 % (0.0-2.0); Eosinophils # (auto) 0 10 ^3/uL (0-0.8); Eosinophils % (auto) 0.1 % (0.0-7.0); Hematocrit 34.8 % (36.0-46.0); Lymphocytes # (auto) 2.6 10 ^3/uL (0.4-5.4); Lymphocytes % (auto) 29.4 % (10.0-50.0); Mean Corpuscular Hemoglobin 32.5 pg (28.0-32.0); Mean Corpuscular Hgb Conc. 34.4 g/dL (32.0-36.0); Mean Corpuscular Volume 94.4 fL (80.0-100.0); Monocytes # (auto) 0.6 10 ^3/uL (0-1.3); Monocytes % (auto) 6.4 % (0.0-12.0); Neutrophils # (auto) 5.7 10 ^3/uL (1.6-8.6); Neutrophils % (auto) 63.9 % (37.0-80.0); Platelet Count (auto) 363 10^3/uL (140-450); Red Blood Cells 3.69 10^6/uL (4.0-5.20); Red Cell Distribution Width 12.3 % (11.8-14.3); White Blood Cell 8.9 10^3/uL (4.4-10.8)
[2024-07-12 08:15] VITALS: PULSE 73; RESP 14; O2SAT 98
[2024-07-12] MEDS: busPIRone HCL 10 MG TAB PO SCH (10:00)
[2024-07-12] MEDS: CITALOPRAM HYDROBR 20 MG TAB PO SCH (10:00)
[2024-07-12] MEDS: lamoTRIgine 100 MG TAB PO SCH (10:00)
[2024-07-12] MEDS: PANTOPRAZOLE 40 MG/10 ML VIAL INJ IV SCH (10:15)
[2024-07-12] MEDS: ENOXAPARIN SOD 40 MG/0.4 ML SYRINGE SC SCH (10:15)
[2024-07-12] MEDS: ATORVASTATIN 20 MG TAB PO SCH (10:16)
[2024-07-12] MEDS: VALSARTAN 80 MG TAB PO SCH (10:17)
[2024-07-12] MEDS: LORATADINE 10 MG TAB PO SCH (10:20)
[2024-07-12 10:41] LABS: Amphetamine Screen, Urine Neg (NEGATIVE); Barbiturate Scree,Urine Neg (NEGATIVE); Benzodiazephine Screen, Urine Neg (NEGATIVE); Cannabinoid Screen, Urine Neg (NEGATIVE); Cocaine Screen, Urine Neg (NEGATIVE); Opiate Scree,Urine Neg (NEGATIVE); Phencyclidine Screen, Urine Neg (NEGATIVE)
[2024-07-12 13:45] VITALS: BP 121/59; PULSE 71; RESP 20; TEMP 97.5; O2SAT 96
[2024-07-12] MEDS: ARIPIPRAZOLE 2 MG PO SCH (14:06)
[2024-07-12] MEDS: DEUTETRABENAZINE PO SCH (14:06)
[2024-07-12] MEDS: APOAEQUORIN PO SCH (14:06)
[2024-07-12] MEDS ORDERED: PANT40TA2 PO (15:44)
--- NOTE | 2024-07-12 15:48 | DVHDS2 ---
Discharge Summary Date of Admission Jul 12, 2024 at 05:46 Date of Discharge: Jul 12, 2024 Labs/Diagnostic Data: Laboratory Results Test 07/12/24 07:49 07/12/24 03:35 07/12/24 01:54 White Blood Count 8.9 10^3/uL (4.4-10.8) Red Blood Count 3.69 10^6/uL (4.0-5.20) Hemoglobin 12.0 g/dL (12.2-16.2) Hematocrit 34.8 % (36.0-46.0) Mean Corpuscular Volume 94.4 fL (80.0-100.0) Mean Corpuscular Hemoglobin 32.5 pg (28.0-32.0) Mean Corpuscular Hemoglobin Concent 34.4 g/dL (32.0-36.0) Red Cell Distribution Width 12.3 % (11.8-14.3) Platelet Count 363 10^3/uL (140-450) Mean Platelet Volume 6.4 fL (6.9-10.8) Neutrophils (%) (Auto) 63.9 % (37.0-80.0) Lymphocytes (%) (Auto) 29.4 % (10.0-50.0) Monocytes (%) (Auto) 6.4 % (0.0-12.0) Eosinophils (%) (Auto) 0.1 % (0.0-7.0) Basophils (%) (Auto) 0.2 % (0.0-2.0) Neutrophils # (Auto) 5.7 10 ^3/uL (1.6-8.6) Lymphocytes # (Auto) 2.6 10 ^3/uL (0.4-5.4) Monocytes # (Auto) 0.6 10 ^3/uL (0-1.3) Eosinophils # (Auto) 0 10 ^3/uL (0-0.8) Basophils # (Auto) 0 10 ^3/uL (0-0.2) Nucleated Red Blood Cells 0.0 % Urine Color Colorless (Yellow) Urine Clarity Clear (Clear) Urine pH 7.0 (5.0-9.0) Urine Specific [place] 1.012 (1.001-1.035) Urine Protein Negative (Negative) Urine Ketones Negative (Negative) Urine Blood Trace /uL (Negative) Urine Nitrite Negative (Negative) Urine Bilirubin Negative (Negative) Urine Urobilinogen Normal mg/dL (Negative) Urine Leukocyte Esterase Negative /uL (Negative) Urine RBC 3 /hpf (0 - 4) Urine Microscopic WBC 4 /HPF (0-5) Urine Squamous Epithelial Cells Few /hpf (<5) Urine Bacteria None seen /hpf (None Seen) Urine Glucose Normal mg/dL (Normal) Urine Opiates Screen Neg (NEGATIVE) Urine Fentanyl Screen Neg (NEGATIVE) Urine Barbiturates Screen Neg (NEGATIVE) Urine Phencyclidine Screen Neg (NEGATIVE) Urine Amphetamines Screen Neg (NEGATIVE) Urine Benzodiazepines Screen Neg (NEGATIVE) Urine Cocaine Screen Neg (NEGATIVE) Urine Cannabinoids Screen Neg (NEGATIVE) Sodium Level 123 mmol/L (136-145) Potassium Level 4.3 mmol/L (3.5-5.1) Chloride Level 93 mmol/L (98-107) Carbon Dioxide Level 22 mmol/L (20-31) Anion Gap 8 (5-15) Blood Urea Nitrogen 22 mg/dL (9-23) Creatinine 1.25 mg/dL (0.550-1.02) Glomerular Filtration Rate Calc 47 mL/min (>90) BUN/Creatinine Ratio 17.6 (10.0-20.0) Serum Glucose 103 mg/dL (74-106) Hemoglobin A1c 5.5 % A1C (<5.7) Calcium Level 10.6 mg/dL (8.7-10.4) Troponin I High Sensitivity 6 ng/L (</=34) Triglycerides Level 72 mg/dL (< 150) Cholesterol Level 186 mg/dL (< 200) LDL Cholesterol 90 mg/dL (< 100) HDL Cholesterol 81 mg/dL (40-59) Other Laboratory Tests 07/12/24 07:49 07/12/24 01:54 Brief Hx & Hospital Course: Final diagnoses: Abdominal pain due to GERD GERD Schizophrenia Hypertension Anxiety Dyslipidemia Hiatal hernia 69-year-old female was admitted for epigastric abdominal pain since last night. She took Tums at home but did not get better She was at [facility] a [facility] ago and was given a prescription but she ran out Here she was given Protonix and today she is asymptomatic Examination she is nontender and soft abdomen CT scan of the abdomen and pelvis was negative Renal ultrasound is normal There was a suspicion of hydronephrosis but the renal ultrasound does not show that Since she is asymptomatic now she can be discharged home on Protonix 40 mg p.o. daily She was educated about avoiding aspirin and NSAIDs and caffeine and resume other home medications and follow up with her primary care physician as soon as possible Condition at Discharge: Stable Final Diagnosis/Problems List Abdominal pain due to GERD GERD Discharge Disposition: Home SNF Discharge Will this Physician continue t: No Discharge Instruct/Medications Diet: Cardiac 2g Na,low cholest Activity: No Restrictions, As Tolerated Follow Up/Referral: PCP as soon as possible Medications: Protonix 40 mg p.o. daily Avoid NSAIDs and caffeine Resume the home medications Discharge Statement: "Patient was advised to return to the ER or call 911 if any headaches, dizziness, shortness of breath, chest pain, abdominal pain, bleeding, fevers, or worsening of medical condition. Patient was counseled about treatment plan, medications, possible side effects, patientverbalized understanding. All questions were answered to the best of my ability. This discharge took greater then 30 minutes in planning, reviewing documentation, counseling the patient, and discussing with other team members." ASSESSMENT ASSESSMENT Assessment Abdominal pain due to GERD GERD Date of Service: Jul 12, 2024 Billing Provider: WINNIE PANTOJA MD Common Visit Codes: NOT BILLABLE WINNIE PANTOJA MD Jul 12, 2024 15:48
[2024-07-12] MEDS: PANTOPRAZOLE 40 MG TAB PO ONE (16:31)
[2024-07-12] MEDS ORDERED: CYCLOBENZAPRINE HCL 10 MG TAB PO SCH (18:00)
== END 2024-07-12 15:25 | disposition home or self-care (01) | DRG 392 ==
LOC: EDBD 01:14 → ER 01:18 → OVERFLOW 05:46
PROVIDERS: ADMIT Internal Medicine Geriatric Medicine; ATTEND Internal Medicine Geriatric Medicine
DX: K21.9 Gastro-esophageal reflux disease without esophagitis (principal); N13.30 Unspecified hydronephrosis; I10 Essential (primary) hypertension; F20.9 Schizophrenia, unspecified; F41.9 Anxiety disorder, unspecified; G89.29 Other chronic pain; K29.70 Gastritis, unspecified, without bleeding; E78.5 Hyperlipidemia, unspecified; K44.9 Diaphragmatic hernia without obstruction or gangrene; E66.9 Obesity, unspecified; Z88.0 Allergy status to penicillin; Z79.899 Other long term (current) drug therapy; Z68.30 Body mass index [BMI] 30.0-30.9, adult
CPT/HCPCS: 36415; 74177; 76775; 80048; 80061; 80307; 81001; 83036; 84484; 85025; 93005; 96361; 96372; 96374; 96375; 96376; 99291; G0378; J2405; J2470